=== PATIENT | male | born 1985 | race African-American/Black ===

== ENCOUNTER 2018-10-16 21:22 | Emergency (ER) | payer OTHER ==
[~2018-10-16] VITALS: Ht 172.7 cm; Wt 77.1 kg
--- NOTE | 2018-10-16 22:15 | ED EENT ---
History of Present Illness General Chief Complaint: Dental Problems/Pain Stated Complaint: RT SIDE TOOTH PAIN History of Present Illness Date Seen by Provider: Oct 16, 2018 Time Seen by Provider: 22:10 Timing/Duration: gradual, yesterday Location: dental Prearrival Treatment: over the counter meds Associated Symptoms: No fever This is a 33-year-old male who complains of right upper tooth pain for the last 2 days. No difficulty swallowing or breathing. No fever. No headache. No weakness, numbness, or tingling or visual change. [id number]-lyb-qgwhfxb Excedrin has relieved the pain earlier in the [place] the pain started to recur again. Allergies and Home Medications Allergies Coded Allergies: No Known Drug Allergies (Unverified , 10/16/18) Home Medications Penicillin V Potassium 500 Mg Tablet, 500 MG PO QID Prescribed by: JOSE SOLORIO on 10/16/18 5231 Patient Home Medication List Home Medication List Reviewed: Yes Review of Systems Review of Systems Constitutional: no symptoms reported Eyes: No Symptoms Reported Nose: no symptoms reported Mouth: see HPI Throat: no symptoms reported Respiratory: no symptoms reported Cardiovascular: no symptoms reported Gastrointestinal: no symptoms reported Musculoskeletal: no symptoms reported Skin: no symptoms reported Neurological: No Symptoms Reported Hematologic/Lymphatic: No Symptoms Reported Immunological/Allergic: no symptoms reported Past Hshvsls-Fkdelf-Akhnpf Hx Patient Social History Recent Foreign Travel: No Contact w/Someone Who Travel: No Physical Exam Height, Weight, BMI Height: '" Weight: lbs. oz. 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 Departure Impression Primary Impression: Toothache Additional Impression: Dental caries Disposition: HOME, SELF-CARE Condition: Stable Departure-Patient Inst. Referrals: NO,LOCAL PHYSICIAN (PCP) Primary Care Physician Patient Instructions: Dental Pain (DC) Scripts Penicillin V Potassium (Penicillin V Potassium) 500 Mg Tablet 500 MG PO QID for 10 Days, #40 TAB Prov: JOSE SOLORIO DO 10/16/18 JOSE SOLORIO DO Oct 16, 2018 22:15
[2018-10-16] MEDS ORDERED: PENICILLIN V K 250 MG TAB PO STA (22:16)
[2018-10-16] MEDS ORDERED: PENI500T PO (22:18)
[2018-10-16] MEDS ORDERED: AUGMENTIN 875 MG TAB (AMOXICILLIN/CLAVULANATE) PO STA (22:27)
[2018-10-16 22:37] VITALS: BP 121/83
== END 2018-10-16 22:37 | disposition home or self-care (01) ==
LOC: ER FS 21:24
DX: K02.9 Dental caries, unspecified (principal)
CPT/HCPCS: 99283

== ENCOUNTER 2020-02-14 11:06 | Emergency (ER) | payer OTHER ==
[~2020-02-14] VITALS: Ht 173.3 cm; Wt 81.8 kg
[~2020-02-14 11:06] MED LIST: PENI500T PO
[2020-02-14] MEDS ORDERED: HYDROcodone/APAP 5 MG/325 MG (LORTAB) TAB PO ONE (11:15)
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
--- OUTSIDE RECORDS SUMMARY | 2020-02-14 11:25 | XMS REPORT | Continuity of Care Document ---
Author Organization Unknown Address Unknown Phone Unavailable Allergies Active Description Code Type Severity Reaction Onset Reported/Identified Relationship to Patient Clinical Status Yes No Known Drug Allergies [id number] Drug Allergy Unknown N/A 10/16/2018 Medications There is no data. Problems There is no data. Procedures There is no data. Results There is no data. Encounters ACCT No. Visit Date/Time Discharge Status Pt. Type Provider Facility Loc./Unit Complaint [id number] 10/02/2019 13:30:00 10/02/2019 23:59: 59 C[facility] [id number] 10/16/2018 21:24:00 019 22:37:00 DIS Emergency JOSE SOLORIO DO [facility] ER FS RT SIDE TOOTH PAIN
--- NOTE | 2020-02-14 11:35 | Diagnostic Imaging Report ---
Indication: Right ankle injury. Time of Exam 11:22 AM 3 views of the right ankle were obtained. Alignment is normal. Ankle mortise is well maintained. Talar dome is smooth. There is an obliquely oriented fracture of the distal fibula. No significant displacement or angulation is identified. There also appears to be a fracture involving the posterior malleolus of the distal tibia on the lateral view. Probable avulsion from the medial malleolus is also seen. Moderate soft tissue swelling about the medial and lateral ankle is noted. IMPRESSION: Obliquely oriented distal fibular fracture without displacement. There is an avulsion of the medial malleolus. There also is a posterior malleolar fracture. Dictated by: Dictated on workstation # [id number]
[2020-02-14] MEDS ORDERED: HYDR-83 PO (12:06)
[2020-02-14 12:35] VITALS: BP 126/79
== END 2020-02-14 12:35 | disposition home or self-care (01) ==
LOC: EDUNIT# 11:06 → ER FS 11:07
DX: S82.54XA Nondisplaced fracture of medial malleolus of right tibia, initial encounter for closed fracture (principal); X50.1XXA Overexertion from prolonged static or awkward postures, initial encounter
CPT/HCPCS: 29505; 73610